=== PATIENT | female | born 1960 | race African-American/Black ===

== ENCOUNTER 2016-07-01 18:45 | Emergency (ER) | payer MEDICARE, OTHER ==
--- NOTE | ~2016-07-01 | EKG ---
PATIENT: KAROLINE PRATT UNIT #: [id number] Ventricular Rate: 60 BPM Atrial Rate: 60 BPM P-R Interval: 268 ms QRS Duration: 88 ms Q-T Interval: 414 ms QTC Calculation(Bezet): 414 ms P [place]: 77 degrees Calculated R [place]: 12 degrees Calculated T [place]: 37 degrees Diagnosis Line: Atrial-paced rhythm with prolonged AV conduction Diagnosis Line: Abnormal ECG Diagnosis Line: When compared with ECG of 23-APR-2016 19:48, Diagnosis Line: No significant change was found Diagnosis Line: Confirmed by TRISTEN DINERO MD ([id number]) on 07/01/2016 Diagnosis Line: 7:34:57 PM INTERPRETING MD: ROSETTE YEPEZ
--- NOTE | ~2016-07-01 | CR72 ---
[facility] A Service of [facility] & [facility] RADIOLOGY TEXT RESULTS PATIENT: KAROLINE PRATT LOCATION: [facility] : 62 UNIT #: [id number] AGE: [address]: Charlene Melendrez MD SEX: F ORDER DR: [id number] [facility] [address] [place], [place] [address] [id number] E MR#: [id number] Acc #: [id number] NAME: KAROLINE PRATT : 1960 SEX: F STUDY DATE/TIME: 07/01/2016 19:09 UNIT: [facility] ROOM: STUDY DESCRIPTION: CR Chest Single View Portable Attending Physician: Charlene Melendrez M.D. Ordering Physician: Charlene Melendrez M.D. Primary Care Physician: Mary Tomas M.D. MEDICAL IMAGING REPORT This report is preliminary unless electronic signature is present EXAM Portable chest HISTORY Chest pain, lightheadedness since last night. Pacemaker. COMPARISON 01/07/2016 FINDINGS AP portable view of the chest demonstrates moderate lung volumes and satisfactory technique. No infiltrates or effusions. Borderline cardiomegaly. Mediastinum unremarkable. Dual lead pacemaker noted. No pneumothorax. IMPRESSION No active disease. Dictated by... Jignesh Rincon M.D. THIS IS AN ELECTRONICALLY VERIFIED REPORT Jignesh Rincon M.D. at 07/02/2016 2:08 PM BARBARA/abbi TD: 07/02/2016 10:01 JOB #: [id number] MEDICAL IMAGING REPORT COPY
[2016-07-01 18:40] LABS: POC - CKMB <1.0 ng/mL (0.0-7.9); POC - TROPONIN <0.05 ng/mL (<=0.05)
[~2016-07-01 18:45] MED LIST: ACETAMINOPHEN PO; ACETAMINOPHEN325 MG PO; ALBUTEROL17 GM INH; AMLODIPINE BES2.5 MG PO; AMOXIL500 M1 PO; ARIXTRA10 MG/0.8 SQ; ARIXTRA7.5 MG/0.6 SQ; ASPIRIN EC81 M1 PO; ATARAX PO; BENTYL10 M1 PO; BENTYL10 MG PO; BENTYL20 MG PO; BUSPAR5 M1 PO; BUSPAR5 MG PO; CENTRUM PO; CENTRUM SILVER1 EAC3 PO; CIPRO PO; CLARISPRAY9.9 ML INH; COUMADIN PO; COUMADIN10 MG PO; COUMADIN5 MG PO; COUMADIN6 MG PO; COUMADIN7.5 MG PO; COZAAR25 MG PO; DAKIN'S473 M1 MC; DEXAMETHASONE; DICLOFENAC PO; DICLOFENAC SODIUM PO; DISCONTINUED MED SUBQ; DITROPAN XL5 M2 PO; DITROPAN5 MG PO; FLEXERIL PO; FLORINEF0.1 MG PO; FLOVENT DI50 MCG/DIS INH; HYDROXYZINE HCL50 MG PO; INDOMETHACIN25 MG; IRON 100-VITAM1 EACH PO; IRON1 TAB PO; IRON325 ( 651 PO; IRON45 MG PO; K-DUR20 ME1 DOB; LIDOCREAM5 GM TP; LISINOPRIL5 MG PO; LORTAB 5/500 TA1 TA1 PO; LORTAB 7.51 TAB PO; LOSARTAN POTASS25 MG PO; LOVENOX40 MG/0.4 INJ; METOPROLOL TAR25 MG PO; METOPROLOL TART25 MG PO; MONTELUKAST SOD10 MG PO; MULTI VITAMIN1 EACH PO; MULTI-DAY1 TAB PO; NO MEDICATIONS; ORUDIS75 M1 PO; PAIN MED; PANTOPRAZOLE SO40 MG PO; PERCOCET10 PO; POTASSIUM CHLO20 ME1 PO; PRO-AMATINE5 MG PO; PROTONIX PO; SERTRALINE HCL25 M2 PO; SERTRALINE HCL50 M1 PO; SIMVASTATIN20 MG PO; TRAMADOL HCL50 M2 PO; ULTRAM PO; VENTOLIN INH; VIBRAMYCIN100 M1 DOB; VICODIN 5/500 T1 TAB PO; VOLTAREN100 GM TOP; VOLTAREN100 GM TP; WARFARIN SODIUM10 MG PO; WARFARIN SODIUM6 M1 PO; XARELTO15 MG PO; XARELTO20 MG PO; ZINC SULFATE220 M1 PO; ZINC10 M1 PO; ZOCOR20 MG PO; ZOLOFT PO; ZOLOFT100 MG PO; ZYRTEC10 M2 PO
[2016-07-01 18:50] LABS: BASOPHIL% 0.5 % (0-2.5); EOSINOPHIL# 0.1 X10e3 (0-0.7); EOSINOPHIL% 2.2 % (0.0-7.0); HEMATOCRIT 35.7 % (35.0-45.0); HEMOGLOBIN 11.6 gm/dL (12.0-16.0); LYMPHOCYTE# 1.9 X10e3 (1.0-3.5); LYMPHOCYTE% 41.5 % (17.0-45.0); MEAN CELL VOLUME 92.3 FL (83-96); MEAN CORPUSCULAR HEMOGLOBIN 29.9 PG (28-34); MEAN CORPUSCULAR HGB CONC 32.4 g/dL (30-36); MEAN PLATELET VOLUME 8.6 FL (6.5-11.5); MONOCYTE# 0.5 X10e3 (0-1.0); MONOCYTE% 11.8 % (3.0-12.0); PLATELET COUNT 213 X10e3 (140-420); RED BLOOD COUNT 3.87 X10e (3.90-5.30); WHITE BLOOD COUNT 4.5 X10e3 (4.0-10.5)
[2016-07-01 18:51] LABS: DIFF IND NO
[2016-07-01 19:03] LABS: INR 1.3; PARTIAL THROMBOPLASTIN TIME 29.2 SECONDS (23.5-31.3); PROTHROMBIN TIME (PATIENT) 13.3 SECONDS (9.6-11.5)
[2016-07-01 20:08] LABS: ALBUMIN SERUM 3.8 g/dL (3.5-5.0); ALKALINE PHOSPHATASE 65 U/L (32-92); ALT (SGPT) 17 U/L (10-40); AST (SGOT) 24 U/L (10-42); BILIRUBIN, DIRECT 0.1 mg/dL (0.0-0.2); BILIRUBIN,INDIRECT 0.6 mg/dL (0.0-0.9); BILIRUBIN,TOTAL 0.7 mg/dL (0.2-2.0); BLOOD UREA NITROGEN 9 mg/dL (9-23); BUN/CREATININE RATIO 12.85; CALCIUM SERUM 8.8 mg/dL (8.4-10.2); CARBON DIOXIDE 27 mmol/L (22-31); CHLORIDE 110 mmol/L (100-111); CREATININE SERUM 0.7 mg/dL (0.6-1.4); GLOM FILT RATE Estimated ABOVE60 mL/min (>60); GLUCOSE FASTING 101 mg/dL (70-110); POTASSIUM 3.2 mmol/L (3.5-5.1); PROTEIN TOTAL SERUM 7.8 g/dL (6.0-8.3); SODIUM 139 mmol/L (135-145)
[2016-07-01 20:36] LABS: POC - CKMB <1.0 ng/mL (0.0-7.9); POC - TROPONIN <0.05 ng/mL (<=0.05)
== END 2016-07-01 22:14 | disposition home or self-care (01) ==
LOC: CED 18:45
PROVIDERS: Emergency Medicine
DX: R07.89 Other chest pain (principal); J45.909 Unspecified asthma, uncomplicated; Z88.5 Allergy status to narcotic agent; Z79.82 Long term (current) use of aspirin; Z79.899 Other long term (current) drug therapy
CPT/HCPCS: 36415; 71010; 80048; 80076; 82553; 83880; 84484; 85025; 85379; 85610; 85730; 93005; 99284

== ENCOUNTER → 2016-07-04 | Day surgery (SDC) | payer MEDICARE, OTHER ==
--- NOTE | ~2016-07-04 | OR ---
Unit #: [id number] #: [id number] Patient: KAROLINE PRATT [id number] [address] [address] [id number] O MR#: [id number] NAME: KAROLINE PRATT ROOM: Date of Procedure: 07/04/2016 Admission Date: 07/04/2016 Surgeon: Scott Coelho M.D. : 1960 Attending Physician: Scott Coelho M.D. Referring Physician: Scott Coelho M.D. Primary Care Physician: Mary Tomas M.D. OPERATIVE REPORT PROCEDURE PERFORMED Esophagogastroduodenoscopy with biopsy. INDICATIONS FOR PROCEDURE The patient with chronic severe GERD symptoms, undergoing evaluation with upper endoscopy. MEDICATIONS Monitored anesthesia. POSTOPERATIVE FINDINGS 1. Small hiatal hernia. No esophagitis, strictures, or rings. 2. Chronic appearing gastritis, biopsies taken. 3. Normal duodenum and distal duodenum. PLAN Continue PPI therapy and reflux precautions. DESCRIPTION OF PROCEDURE The patient was explained of the procedure, risks, and benefits along with the risks and benefits of anesthesia. She was brought to the endoscopy room. Propofol anesthesia was given. Bite block was placed. The scope was passed down the mouth into the esophagus, stomach, duodenum, and distal duodenum. Findings as described. Biopsies taken. Gently, the scope was pulled out. She tolerated it well. Dictated by... Marnie Abrams/alyson TD: 07/05/2016 01:16 JOB #: [id number] Unit #: [id number] #: [id number] Patient: KAROLINE PRATT OPERATIVE REPORT X Scott Coelho MD PROCEDURE OPERATIVE NOTE
== END | disposition home or self-care (01) ==
LOC: COPS 07:11
DX: K29.50 Unspecified chronic gastritis without bleeding (principal); K44.9 Diaphragmatic hernia without obstruction or gangrene; I10 Essential (primary) hypertension; E66.01 Morbid (severe) obesity due to excess calories; Z88.6 Allergy status to analgesic agent; Z79.899 Other long term (current) drug therapy; Z79.01 Long term (current) use of anticoagulants; Z95.0 Presence of cardiac pacemaker
CPT/HCPCS: 88305; 88312

== ENCOUNTER 2016-09-07 14:28 | Emergency (ER) | payer MEDICARE, OTHER ==
--- NOTE | ~2016-09-07 | CT71 ---
[facility] A Service [facility] RADIOLOGY TEXT RESULTS PATIENT: KAROLINE PRATT LOCATION: [facility] : 62 UNIT #: [id number] AGE: [address]: Jens Nguyen MD SEX: F ORDER DR: [id number] [facility] [address] [place] [address] [place], [place] [address] [id number] E MR#: [id number] Acc #: [id number] NAME: KAROLINE PRATT : 1960 SEX: F STUDY DATE/TIME: 09/07/2016 16:58 UNIT: [facility] ROOM: STUDY DESCRIPTION: CT Head Wo Contrast Attending Physician: Jens Nguyen M.D. Ordering Physician: Jens Nguyen M.D. Primary Care Physician: Mary Tomas M.D. MEDICAL IMAGING REPORT This report is preliminary unless electronic signature is present EXAM CT brain without contrast HISTORY Headache and lightheaded and right lower extremity numbness for 2 days. TECHNIQUE Axial noncontrast images were obtained from the skull base to the vertex. This CT exam was performed with one or more of the following radiation dose reduction techniques: Automatic exposure control, adjustment of mA and/or kV according to patient size, and iterative reconstruction. FINDINGS Ventricular size and configuration are normal. There is no evidence of acute infarct or hemorrhage. There are no extraaxial fluid collections. No mass lesion or mass effect is seen. There are no skull fractures. IMPRESSION Normal noncontrast head CT. Dictated by... Jeevan Lopez M.D. THIS IS AN ELECTRONICALLY VERIFIED REPORT Jeevan Lopez M.D. at 09/07/2016 10:24 PM DFL/fanny TD: 09/07/2016 19:04 JOB #: [id number] MEDICAL IMAGING REPORT [facility] A Service [facility] RADIOLOGY TEXT RESULTS PATIENT: KAROLINE PRATT LOCATION: [facility] : 62 UNIT #: [id number] AGE: [address]: Jens Nguyen MD SEX: F ORDER DR: Page 1 of 1 COPY
[2016-09-07 16:25] LABS: BASOPHIL% 0.5 % (0-2.5); EOSINOPHIL# 0.1 X10e3 (0-0.7); EOSINOPHIL% 2.4 % (0.0-7.0); HEMATOCRIT 37.4 % (35.0-45.0); LYMPHOCYTE# 1.9 X10e3 (1.0-3.5); LYMPHOCYTE% 44.6 % (17.0-45.0); MEAN CORPUSCULAR HEMOGLOBIN 29.7 PG (28-34); MEAN CORPUSCULAR HGB CONC 32.2 g/dL (30-36); MEAN PLATELET VOLUME 8.2 FL (6.5-11.5); MONOCYTE# 0.6 X10e3 (0-1.0); MONOCYTE% 13.6 % (3.0-12.0); NEUTROPHIL# 1.6 X10e3 (1.5-7.1); NEUTROPHIL% 38.9 % (40-75); PLATELET COUNT 225 X10e3 (140-420); RED BLOOD COUNT 4.06 X10e (3.90-5.30); RED CELL DISTRIBUTION WIDTH 13.3 % (11.0-15.5); WHITE BLOOD COUNT 4.2 X10e3 (4.0-10.5)
[2016-09-07 16:26] LABS: DIFF IND NO
[2016-09-07 16:50] LABS: BILIRUBIN, DIRECT 0.1 mg/dL (0.0-0.2); BILIRUBIN,INDIRECT 1.1 mg/dL (0.0-0.9); BILIRUBIN,TOTAL 1.2 mg/dL (0.2-2.0); BUN/CREATININE RATIO 13.75; CALCIUM SERUM 9.2 mg/dL (8.4-10.2); CREATININE SERUM 0.8 mg/dL (0.6-1.4); GLOM FILT RATE Estimated 96.3 mL/min (>60); POTASSIUM 3.8 mmol/L (3.5-5.1); PROTEIN TOTAL SERUM 8.4 g/dL (6.0-8.3)
== END 2016-09-07 17:30 | disposition home or self-care (01) ==
LOC: CED 14:28
PROVIDERS: Emergency Medicine
DX: R51 Headache (principal); L03.116 Cellulitis of left lower limb; I10 Essential (primary) hypertension; Z86.718 Personal history of other venous thrombosis and embolism; Z86.711 Personal history of pulmonary embolism; Z79.899 Other long term (current) drug therapy
CPT/HCPCS: 36415; 70450; 80048; 80076; 85025; 99284

== ENCOUNTER → 2016-09-09 | Outpatient (CLI) | payer MEDICARE, OTHER ==
--- NOTE | ~2016-09-09 | CR253 ---
[facility] A Service of [facility] & [facility] RADIOLOGY TEXT RESULTS PATIENT: KAROLINE PRATT LOCATION: [facility] : 62 UNIT #: [id number] AGE: [address]: Hannah Carrillo APRN SEX: F ORDER DR: [id number] [facility] [address] [place], [place] [address] [id number] O MR#: [id number] Acc #: [id number] NAME: KAROLINE PRATT : 1960 SEX: F STUDY DATE/TIME: 09/09/2016 16:29 UNIT: [facility] ROOM: STUDY DESCRIPTION: CR Tibia and Fibula 2 Views Rt Attending Physician: Hannah Carrillo Aprn Referring Physician: Hannah Carrillo Aprn Ordering Physician: Hannah Carrillo Aprn Primary Care Physician: Mary Tomas M.D. MEDICAL IMAGING REPORT This report is preliminary unless electronic signature is present EXAM Right tibia and fibula 4 views 09/09/2016 HISTORY Right lower extremity pain and swelling for 3 days with no known injury. FINDINGS There is no evidence of fracture, dislocation, or radiopaque foreign body. IMPRESSION Normal tibia and fibula. Dictated by... Anthony Bazan M.D. THIS IS AN ELECTRONICALLY VERIFIED REPORT Anthony Bazan M.D. at 09/11/2016 8:02 AM REED/honey TD: 09/10/2016 08:35 JOB #: [id number] MEDICAL IMAGING REPORT Page 1 of 1 COPY
== END | disposition home or self-care (01) ==
LOC: CRAD 16:17
DX: M79.89 Other specified soft tissue disorders (principal); M79.662 Pain in left lower leg
CPT/HCPCS: 73590

== ENCOUNTER → 2016-09-12 | Outpatient (CLI) | payer MEDICARE, OTHER ==
--- NOTE | ~2016-09-12 | US85 ---
[facility] A Service of [facility] & [facility] RADIOLOGY TEXT RESULTS PATIENT: KAROLINE PRATT LOCATION: [facility] : 62 UNIT #: [id number] AGE: [address]: FORD HERNANDEZ SEX: F ORDER DR: [id number] [facility] [address] [place], [place] [address] [id number] O MR#: [id number] Acc #: [id number] NAME: KAROLINE PRATT : 1960 SEX: F STUDY DATE/TIME: 09/12/2016 13:22 UNIT: [facility] ROOM: STUDY DESCRIPTION: LE Veins Unilat or Ltd Stdy Attending Physician: Saskia Doshi Referring Physician: Saskia Doshi Ordering Physician: Saskia Doshi Primary Care Physician: Mary Tomas M.D. MEDICAL IMAGING REPORT This report is preliminary unless electronic signature is present EXAM Right lower extremity venous duplex 09/12/2016 HISTORY Right lower extremity pain, swelling and redness for 1 month increasing in the past week. No known trauma. Evaluate for deep vein thrombosis. TECHNIQUE Venous ultrasound examination of the right lower extremity was performed using grayscale, spectral Doppler and color flow Doppler imaging. FINDINGS The examination is negative. There is no evidence of right lower extremity deep venous thrombus from the groin to the lower calf. Visualized greater saphenous vein is also patent. IMPRESSION Negative examination. No evidence of right lower extremity deep venous thrombosis. Dictated by... Anthony Bazan M.D. THIS IS AN ELECTRONICALLY VERIFIED REPORT Anthony Bazan M.D. at 09/12/2016 4:30 PM Taiwo TD: 09/12/2016 15:31 JOB #: [id number] MEDICAL IMAGING REPORT Page 1 of 1 COPY
== END | disposition home or self-care (01) ==
LOC: CNIV 12:55
DX: M79.89 Other specified soft tissue disorders (principal); M79.661 Pain in right lower leg
CPT/HCPCS: 93971

== ENCOUNTER → 2016-09-24 | Outpatient (CLI) | payer MEDICARE, OTHER ==
--- NOTE | ~2016-09-24 | NM19 ---
[facility] A Service of [facility] & [facility] RADIOLOGY TEXT RESULTS PATIENT: KAROLINE PRATT LOCATION: [facility] : 62 UNIT #: [id number] AGE: [address]: IVA WALDRON APRN SEX: F ORDER DR: [id number] [facility] [address] [place], [place] [address] [id number] O MR#: [id number] Acc #: [id number] NAME: KAROLINE PRATT : 1960 SEX: F STUDY DATE/TIME: 09/24/2016 10:07 UNIT: [facility] ROOM: STUDY DESCRIPTION: NM Gastric Emptying Study Attending Physician: Iva Waldron A.P.R.N. Referring Physician: Iva Waldron A.P.R.N. Ordering Physician: Iva Waldron A.P.R.N. Primary Care Physician: Mary Tomas M.D. MEDICAL IMAGING REPORT This report is preliminary unless electronic signature is present EXAM Gastric emptying study INDICATIONS Lower abdominal pain and cramping with early satiety for the past month. PROCEDURE Patient ingested 520 mcCi technetium-labeled sulfur colloid mixed in eggs. Imaging of the stomach was performed in the anterior and posterior projections for 4 hours. COMPARISON None FINDINGS Stomach is 0 send empty at 0 minutes 18% empty 60 minutes 70% empty 120 minutes and 97% empty 240 minutes. IMPRESSION Normal gastric emptying. Dictated by... Adis Morris M.D. THIS IS AN ELECTRONICALLY VERIFIED REPORT Adis Morris M.D. at 09/25/2016 2:23 PM EED/la TD: 09/24/2016 17:49 JOB #: [id number] MEDICAL IMAGING REPORT Page 1 of 1 COPY
== END | disposition home or self-care (01) ==
LOC: CNUC 09-16 09:00
DX: R10.9 Unspecified abdominal pain (principal)
CPT/HCPCS: 78264; A9541

== ENCOUNTER → 2016-11-19 | Outpatient (CLI) | payer MEDICARE, OTHER ==
--- NOTE | ~2016-11-19 | US98 ---
[facility] A Service of [facility] RADIOLOGY TEXT RESULTS PATIENT: KAROLINE PRATT LOCATION: [facility] : 62 UNIT #: [id number] AGE: [address]: FORD HERNANDEZ SEX: F ORDER DR: [id number] [facility] [address] [place], [place] [address] [id number] O MR#: [id number] Acc #: [id number] NAME: KAROLINE PRATT : 1960 SEX: F STUDY DATE/TIME: 11/19/2016 15:09 UNIT: [facility] ROOM: STUDY DESCRIPTION: US Pelvic Non-OB Complete Attending Physician: Saskia Doshi Referring Physician: Mary Tomas M.D. Ordering Physician: Saskia Doshi Primary Care Physician: Mary Tomas M.D. MEDICAL IMAGING REPORT This report is preliminary unless electronic signature is present EXAM Pelvic ultrasound. INDICATIONS Unexpected vaginal bleeding for the past 4 days. Depo shot 3 days ago. Patient reports menopause 3 years ago. PROCEDURE Mireles-scale and Doppler imaging of the pelvis via transabdominal and transvaginal approach. COMPARISON 10/29/2015 FINDINGS The uterus anteverted and measures 8.4 x 5.5 x 5.9 cm. There is a 1.6-cm fibroid, posterior lower uterine segment. The endometrium is thickened and heterogeneous, measuring up to 2.4 cm in thickness. Right ovary measures 2.7 x 1.8 x 3.3 cm. No pelvic fluid. The left ovary measures 2.4 x 1.2 cm and contains a 1.3-cm benign simple cyst. IMPRESSION 1. Thickened endometrium measuring up to 2.4 cm in thickness, nonspecific. Considerations include endometrial hyperplasia, submucosal polyp, endometrial polyp, or malignancy. Consider endometrial sampling. 2. 1.6-cm fibroid in the lower uterine segment. 3. 1.3-cm benign simple cyst in the left ovary. Dictated by... Adis Morris M.D. [facility] A Service of [facility] RADIOLOGY TEXT RESULTS PATIENT: KAROLINE PRATT LOCATION: [facility] : 62 UNIT #: [id number] AGE: [address]: FORD HERNANDEZ SEX: F ORDER DR: THIS IS AN ELECTRONICALLY VERIFIED REPORT Adis Morris M.D. at 11/24/2016 8:20 AM Cha TD: 11/20/2016 12:22 JOB #: [id number] MEDICAL IMAGING REPORT Page 1 of 1 COPY
== END | disposition home or self-care (01) ==
LOC: CWCC 14:51
DX: N93.9 Abnormal uterine and vaginal bleeding, unspecified (principal); R93.8 Abnormal findings on diagnostic imaging of other specified body structures; D25.9 Leiomyoma of uterus, unspecified; N83.292 Other ovarian cyst, left side
CPT/HCPCS: 76830; 76856